=== PATIENT | female | born 1950 | race Caucasian/White ===

== ENCOUNTER → 2021-12-20 | Outpatient (CLI) | payer MEDICARE ==
[~2021-12-20] MED LIST: ALEN70TA80 PO; ASPI-1071 PO; ASPI-612 PO; ATOR10TA70 PO; ATOR20TA66 PO; CARV3.122 PO; CETI-90 PO; CLOP75TA15 PO; CLOP75TA34 PO; DAPA10TA PO; EMPA10TA PO; FAMO40TA58 PO; FERR324T3 PO; FURO40TA4 PO; HYDR25TA4 PO; ISOS20TA8 PO; LEVO25TA7 PO; LISI40TA13 PO; LOP12.5T PO; LOSA25TA96 PO; NITR0.4T51 SL; OMEP40CA21 PO; PANT-47 PO; ROPI1TAB6 PO; ROSU20TA2 PO; SACU1TAB PO; SPIR25TA5 PO; SUCR1TAB PO; SUCR1TAB34 PO; TRAM50TA2 PO
== END | disposition home or self-care (01) ==
LOC: LAB 12:09 → EDSTATUS 12-21 08:30
PROVIDERS: ATTEND Surgery
DX: I25.10 Atherosclerotic heart disease of native coronary artery without angina pectoris (principal); Z79.899 Other long term (current) drug therapy
CPT/HCPCS: 94010

== ENCOUNTER 2022-01-16 05:13 | Inpatient (IN) | payer MEDICARE ==
[2022-01-11 13:57] LABS: BASOPHILS % (AUTO) 0.8 % (0-1); EOSINOPHILS # (AUTO) 0.1 X10'3 (0-0.9); EOSINOPHILS % (AUTO) 2.5 % (0-6); LYMPHOCYTES # (AUTO) 1.4 X10'3 (1.1-4.8); LYMPHOCYTES % (AUTO) 24.1 % (21-51); MEAN CORPUSCULAR HEMOGLOBIN 31.4 PG (27.0-31.0); MEAN CORPUSCULAR HGB CONC 32.9 g/dL (33.0-36.5); MEAN CORPUSCULAR VOLUME 95.5 FL (78-98); MEAN PLATELET VOLUME 8.5 FL (7.4-10.4); MONOCYTES # (AUTO) 0.6 X10'3 (0-0.9); MONOCYTES % (AUTO) 10.5 % (2-12); NEUTROPHILS # (AUTO) 3.5 X10'3 (1.8-7.7); NEUTROPHILS % (AUTO) 62.1 % (42-75); PRE OP HEMATOCRIT 39.3 % (35.0-45.0); PRE OP HEMOGLOBIN 12.9 g/dL (12.0-16.0); PRE OP PLATELET COUNT 233 X10'3 (140-440); RED BLOOD COUNT 4.12 X10'6 (4.20-5.60); RED CELL DISTRIBUTION WIDTH 13.8 % (11.5-14.5)
[2022-01-11 13:58] LABS: CLARITY,URINE CLEAR (Clear); COLOR,URINE YELLOW (Yellow); GLUCOSE, URINE >=1000 mg/dl (Neg); KETONES,URINE NEGATIVE (Neg); LEUKOCYTE ESTERASE ,URINE NEGATIVE (Neg); NITRITES, URINE NEGATIVE (Neg); OCCULT BLOOD,URINE NEGATIVE (Neg); PROTEIN,URINE NEGATIVE (Neg); UROBILINOGEN,URINE 0.2 E.U/dL (0.2-1.0)
[2022-01-11 14:01] LABS: UA COLLECTION TYPE NON-SPECIFIED
[2022-01-11 14:08] LABS: HEMOGLOBIN A1C 5.7 % (4.5-6.2)
[2022-01-11 14:09] LABS: PRE OP PROTIME 10.3 SECONDS (9.0-12.0)
[2022-01-11 14:20] LABS: ALBUMIN 4.3 G/DL (3.4-5.0); ALBUMIN/GLOBULIN RATIO 1.2 (1.1-1.5); ALKALINE PHOSPHATASE 62 IU/L (46-116); BLOOD UREA NITROGEN 21 MG/DL (7-18); BUN/CREATININE RATIO 26.6 (6.6-38.0); CALCIUM 9.4 MG/DL (8.5-10.1); CHLORIDE 104 MMOL/L (99-107); CREATININE 0.79 MG/DL (0.40-0.90); PRE OP ALT 40 U/L (30-65); PRE OP ANION GAP 10 (8-16); PRE OP AST 22 U/L (10-37); PRE OP BILIRUB, TOTAL 0.5 MG/DL (0.0-1.0); PRE OP GLUCOSE 98 MG/DL (70-104); PRE OP POTASSIUM 4.1 MMOL/L (3.4-5.1); PRE OP SODIUM 141 MMOL/L (135-145); TOTAL CARBON DIOXIDE 27.3 MMOL/L (24-32); TOTAL PROTEIN 7.9 G/DL (6.4-8.2); eGFR 72 ML/MIN
[2022-01-11 14:27] LABS: BACTERIA,URINE NONE SEEN /HPF (Neg); MUCUS STRANDS NONE SEEN /LPF (Neg); RBC,URINE NONE SEEN /HPF (0-2); SQUAMOUS EPITHELIAL CELL,UR MODERATE /LPF (FEW); WBC,URINE 0-4 /HPF (0-4)
[~2022-01-16] VITALS: Ht 172.7 cm; Wt 82.4 kg
[2022-01-16] VITALS (19 sets, daily range): BP systolic 95–130; BP diastolic 46–77
[~2022-01-16 05:13] MED LIST changes: -ASPI-1071 PO; -ATOR10TA70 PO; -ATOR20TA66 PO; -CLOP75TA34 PO; -FERR324T3 PO; -HYDR25TA4 PO; -ISOS20TA8 PO; -LISI40TA13 PO; -LOP12.5T PO; -LOSA25TA96 PO; -PANT-47 PO; -SUCR1TAB34 PO; -TRAM50TA2 PO; +ringers solution, lacted 1,000 ML IV SCH
[2022-01-16] MEDS ORDERED: dextrose 50%-water 50ml dispensing syringe IV PRN ×2 (05:30→12:35)
[2022-01-16] MEDS ORDERED: clindamycin-Cleocin 900mg/D5W 50 ML IV ONE (05:30)
[2022-01-16] MEDS ORDERED: insulin glargine (Lantus) pen - multi-dose SQ PRN ×2 (05:30→12:35)
[2022-01-16] MEDS ORDERED: mupirocin 2% nasal ointment 1gm UD NS ONE (05:30)
[2022-01-16] MEDS ORDERED: vancomycin 1,500 MG in NS 300ml IV soln IV ONE (05:30)
[2022-01-16] MEDS ORDERED: metoprolol tartrate 12.5mg (1/2 tablet) PO ONE (05:30)
[2022-01-16] MEDS ORDERED: Insulin Reg/NS 100units/100mL 100 ML IV SCH ×2 (05:30→13:10)
[2022-01-16] MEDS ORDERED: insulin Lispro (HumaLOG) vial - multi-dose SQ PRN (05:30)
[2022-01-16] MEDS ORDERED: famotidine 20mg tablet PO ONE (05:30)
[2022-01-16] MEDS ORDERED: DOCUMENT DATE & TIME OF BETA-BLOCKER PO ONE (05:30)
[2022-01-16] MEDS ORDERED: ceFAZolin 1000mg inj ONE (05:31)
[2022-01-16] MEDS ORDERED: BUPIVAcaine/PF 2.5 mg/ml (0.25%) 30ml vial ONE (05:31)
[2022-01-16 06:23] LABS: ABG HCO3 22.5 mmol/L (22.0-26.0); ABG PO2 (T) 96.4 mmHg (75.0-100.0); ALLEN'S TEST POSITIVE; FCOHb 1.2 % (0.0-3.9); FMetHb 0.3 % (0.0-1.5); FO2Hb 95.5 % (94-97); TOTAL HEMOGLOBIN 12.7 G/dl (12.0-16.0)
--- NOTE | 2022-01-16 06:30 | NUR ---
PT PREPPED FOR SURGERY. SHAVED AND WIPED DOWN BY [facility] [employer]. IV STARTED 16 G IN LEFT AV, AWAITING DR DEVRIES. AT BEDSIDE QUESTIONS ANSWERED. PT INSTRUCTED ON THE USE OF THE INCENTIVE SPIROMETRY AND WAS ABLE TO PERFORM WITHOUT DIFFICULTY
[2022-01-16] MEDS ORDERED: MIDAZolam 1mg/ml 10ml vial ONE (07:14)
[2022-01-16] MEDS ORDERED: fentaNYL /PF 50mcg/ml 5ml ampule ONE ×2 (07:15)
[2022-01-16] MEDS ORDERED: rocuronium 10mg/ml inj IV ONE ×3 (07:18)
[2022-01-16] MEDS ORDERED: propofol inj 20 ML IV ONE (07:18)
[2022-01-16] MEDS ORDERED: LIDOcaine 2% (20mg/ml) 5ml vial ONE (07:18)
[2022-01-16] MEDS ORDERED: NORepinephrine 8 MG in NS 250 ML BAG (32 mcg/ml) IV ONE (07:57)
[2022-01-16] MEDS ORDERED: protamine sulf. 10mg/ml inj. IV ONE (07:57)
[2022-01-16] MEDS ORDERED: sevoflurane 250ml liquid IH ONE (07:57)
[2022-01-16] MEDS ORDERED: heparin 10,000 units/1 ML INJ ONE ×2 (08:00)
[2022-01-16] MEDS ORDERED: heparin 10,000 units/1 ML INJ IR ONE (08:00)
[2022-01-16] MEDS ORDERED: papaverine 30 mg/ml 2ml inj. ONE (08:00)
[2022-01-16] MEDS ORDERED: papaverine 30 mg/ml 2ml inj. IA ONE (08:00)
[2022-01-16] MEDS ORDERED: aminocaproic acid 250 MG/1 ML inj. ONE (08:00)
[2022-01-16] MEDS ORDERED: epiNEPHrine 1 mg/ml inj ONE (08:23)
[2022-01-16 08:41] LABS: ABG BASE EXCESS -3.4 mmol/L (-2.0-2.0); ABG OXYGEN SATURATION 99.5 % (94-97); ABG PCO2 30.9 mmHg (32.0-45.0); ABG PO2 461.4 mmHg (75.0-100.0); CL (ABG) 105 mmol/L (99-107); FCOHb 0.7 % (0.0-3.9); FMetHb 0.2 % (0.0-1.5); FO2Hb 98.6 % (94-97); GLUCOSE (ABG) 102 mg/dl (70-104); IONIZED CA (ABG) 1.17 mmol/L (1.10-1.30); K (ABG) 3.8 mmol/L (3.5-5.1); TOTAL HEMOGLOBIN 10.9 G/dl (12.0-16.0)
[2022-01-16 08:49] LABS: ACT @ 1.70 U 262 SEC (193-297); ACT @ 2.84 U 367 SEC (260-420); BASELINE ACT 133 SEC (101-148); PATIENT WEIGHT 73.0k KG
[2022-01-16 09:47] LABS: ABG BASE EXCESS VENOUS -2.2 mmol/L (-2.0 - 2.0); ABG PCO2 VENOUS 41.3 mmHg (38.0-51.0); ABG PO2 VENOUS 47.1 mmHg (25.0-35.0); CL (ABG) 107 mmol/L (99-107); FCOHb VENOUS 1.3 % (0.0- 3.9); FHHb VENOUS 19.5 %; FMetHb VENOUS 0.3 % (0.0 - 0.5); FO2Hb VENOUS 78.9 %; GLUCOSE (ABG) 131 mg/dl (70-104); IONIZED CA (ABG) 1.16 mmol/L (1.10-1.30); K (ABG) 3.8 mmol/L (3.5-5.1); TOTAL HEMOGLOBIN 10.9 G/dl (12.0-16.0)
[2022-01-16] MEDS: ROPIVAcaine 0.2%/PF PUMP/bolus 545 ML MEDSTERN SCH ×2 (10:25→12:45)
[2022-01-16] MEDS ORDERED: albumin (human) 25% 100ml IV 100 ML in normal saline 500ml IV soln 400 ML IV ONE ×4 (11:00)
[2022-01-16] MEDS ORDERED: albumin (human) 25% 100ml IV 100 ML in normal saline 500ml IV soln 400 ML IV PRN ×5 (11:01→11:05)
[2022-01-16 11:37] LABS: ABG BASE EXCESS VENOUS -4.8 mmol/L (-2.0 - 2.0); ABG HCO3 VENOUS 20.9 mmol/L (21.0-28.0); ABG PCO2 VENOUS 41.4 mmHg (38.0-51.0); ABG PO2 VENOUS 42.8 mmHg (25.0-35.0); CL (ABG) 107 mmol/L (99-107); FCOHb VENOUS 1.5 % (0.0- 3.9); FHHb VENOUS 25.6 %; FMetHb VENOUS 0.3 % (0.0 - 0.5); FO2Hb VENOUS 72.6 %; GLUCOSE (ABG) 128 mg/dl (70-104); IONIZED CA (ABG) 1.14 mmol/L (1.10-1.30); K (ABG) 3.6 mmol/L (3.5-5.1)
[2022-01-16 11:40] LABS: ACTIVATED CLOTTING TIME 127 SEC (101-148)
[2022-01-16] MEDS ORDERED: albumin (human) 25% 100ml IV 100 ML IV ONE (11:59)
[2022-01-16] MEDS ORDERED: albumin (Human) 5% 250ml 0 ML IV ONE (12:00)
[2022-01-16] MEDS ORDERED: mineral oil 133ml enema RC PRN (12:35)
[2022-01-16] MEDS ORDERED: ondansetron/PF 4mg/2ml inj IV PRN (12:35)
[2022-01-16] MEDS ORDERED: potassium Cl 20mEq/100mL bag 100 ML IV PRN (12:35)
[2022-01-16] MEDS ORDERED: Neutra Phos packet PO PRN (12:35)
[2022-01-16] MEDS ORDERED: potassium CL 10mEq/100ml bag 100 ML IV PRN (12:35)
[2022-01-16] MEDS ORDERED: magnesium citrate 296ml oral solution PO PRN (12:35)
[2022-01-16] MEDS ORDERED: potassium Cl 40MEQ/270ML bag 250 ML IV PRN (12:35)
[2022-01-16] MEDS ORDERED: sodium phosphate inj. 15 MMOL in dextrose 5%-water 250 ML IV PRN (12:35)
[2022-01-16] MEDS ORDERED: magnesium 2GM in 50ml NS 50 ML IV PRN (12:35)
[2022-01-16] MEDS ORDERED: magnesium hydroxide 30ml (MOM) UD suspension PO PRN (12:35)
[2022-01-16] MEDS ORDERED: normal saline 250ml IV soln 250 ML IV PRN (12:35)
[2022-01-16] MEDS ORDERED: morphine 4 MG/ML inj SYRINge IV PRN (12:35)
[2022-01-16] MEDS ORDERED: magnesium 4gm in 100ml NS 100 ML IV PRN (12:35)
[2022-01-16] MEDS ORDERED: metoclopramide 5 mg/ml inj IV PRN (12:35)
[2022-01-16] MEDS: sodium chloride 0.45% 1,000 ML IV SCH (12:35)
[2022-01-16] MEDS ORDERED: potassium Cl 20 mEq SR tablet PO PRN (12:35)
[2022-01-16] MEDS ORDERED: bisacodyl 10mg suppository rectal RC PRN (12:35)
[2022-01-16] MEDS ORDERED: potassium Cl 40MEQ/1/2NS 520ml 520 ML IV PRN (12:35)
[2022-01-16] MEDS ORDERED: sodium phosphate inj. 30 MMOL in dextrose 5%-water 250 ML IV PRN (12:35)
--- NOTE | 2022-01-16 12:45 | NUR ---
pt from cvor to room 2011,cxr, abg, lab draws performed. mds at bedside.
[2022-01-16] MEDS ORDERED: niCARDipine-NS 40mg/200ml IVPB 200 ML IV PRN (12:54)
[2022-01-16] MEDS ORDERED: NORepinephrine 8mg/ 250ml NS 250 ML IV PRN (12:55)
[2022-01-16 12:57] LABS: ABG BASE EXCESS -6.6 mmol/L (-2.0-2.0); ABG HCO3 18.7 mmol/L (22.0-26.0); ABG OXYGEN SATURATION 98.8 % (94-97); ABG PCO2 (T) 32.5 mmHg (32.0-45.0); ABG PO2 (T) 250.6 mmHg (75.0-100.0); ALLEN'S TEST Modified; FCOHb 0.3 % (0.0-3.9); FMetHb 0.3 % (0.0-1.5); FO2Hb 98.2 % (94-97); PATIENT TEMPERATURE 34.2; PEEP 5 cm H2O; RESPIRATORY RATE 12 b/min; TIDAL VOLUME 550 mL; TOTAL HEMOGLOBIN 9.9 G/dl (12.0-16.0)
[2022-01-16] MEDS ORDERED: DOPamine 400mg/D5W 250ml 250 ML IV PRN (12:57)
[2022-01-16 12:58] LABS: BASOPHILS % (AUTO) 0.1 % (0-1); EOSINOPHILS # (AUTO) 0.1 X10'3 (0-0.9); HEMATOCRIT 28.3 % (35.0-45.0); HEMOGLOBIN 9.3 g/dl (12.0-16.0); LYMPHOCYTES # (AUTO) 1.3 X10'3 (1.1-4.8); MEAN CORPUSCULAR HEMOGLOBIN 31.3 PG (27.0-31.0); MEAN CORPUSCULAR HGB CONC 32.9 g/dL (33.0-36.5); MEAN CORPUSCULAR VOLUME 95.1 FL (78-98); MONOCYTES # (AUTO) 0.8 X10'3 (0-0.9); MONOCYTES % (AUTO) 6.2 % (2-12); NEUTROPHILS # (AUTO) 10.5 X10'3 (1.8-7.7); NEUTROPHILS % (AUTO) 82.7 % (42-75); PLATELET COUNT 151 X10'3 (140-440); RED BLOOD COUNT 2.98 X10'6 (4.20-5.60); RED CELL DISTRIBUTION WIDTH 13.5 % (11.5-14.5); WHITE BLOOD COUNT 12.7 X10'3 (4.5-11.0)
[2022-01-16] MEDS ORDERED: sodium bicarbonate (8.4%) 1 mEq/ml syringe ONE (12:58)
[2022-01-16] MEDS: sucralfate 1 gm tablet PO SCH ×3 (13:00→21:00)
[2022-01-16] MEDS ORDERED: morphine 4 MG/ML inj SYRINge ONE (13:00)
[2022-01-16] MEDS ORDERED: nitroGLYCERIN-Tridil 50MG/D5W 250 ML IV PRN (13:05)
[2022-01-16 13:13] LABS: ALANINE AMINOTRANSFERASE 24 U/L (12-78); ALBUMIN 3.9 G/DL (3.4-5.0); ALBUMIN/GLOBULIN RATIO 2.1 (1.1-1.5); ALKALINE PHOSPHATASE 38 IU/L (46-116); ANION GAP 12 (8-16); ASPARTATE AMINO TRANSFERASE 15 U/L (10-37); BILIRUBIN,TOTAL 0.6 MG/DL (0.1-1.0); BLOOD UREA NITROGEN 15 MG/DL (7-18); CALCIUM 7.5 MG/DL (8.5-10.1); CHLORIDE 109 MMOL/L (99-107); GLUCOSE 113 MG/DL (70-104); MAGNESIUM 1.7 MG/DL (1.5-2.4); PHOSPHORUS 3.2 MG/DL (2.3-4.5); POTASSIUM 3.8 MMOL/L (3.5-5.1); SODIUM 141 MMOL/L (135-145); TOTAL CARBON DIOXIDE 19.9 MMOL/L (24-32); TOTAL PROTEIN 5.8 G/DL (6.4-8.2); eGFR > 90 ML/MIN
[2022-01-16 13:16] LABS: APTT 34 SECONDS (22-32)
[2022-01-16] MEDS: gabapentin 300mg capsule PO SCH ×2 (14:22→20:43)
[2022-01-16] MEDS: morphine 2 MG/ML inj. syringe IV PRN ×3 (14:45→19:41)
--- NOTE | 2022-01-16 16:24 | NUR ---
Dr. reynaga at bedside updated on pt condition
[2022-01-16] MEDS: ceFAZolin/D5W- 1GM premix 50 ML IV SCH (16:29)
[2022-01-16 17:51] LABS: BASOPHILS % (AUTO) 0.1 % (0-1); EOSINOPHILS % (AUTO) 0.1 % (0-6); HEMATOCRIT 27.7 % (35.0-45.0); HEMOGLOBIN 9.1 g/dl (12.0-16.0); LYMPHOCYTES # (AUTO) 0.6 X10'3 (1.1-4.8); LYMPHOCYTES % (AUTO) 4.4 % (21-51); MEAN CORPUSCULAR HEMOGLOBIN 31.3 PG (27.0-31.0); MEAN CORPUSCULAR HGB CONC 32.8 g/dL (33.0-36.5); MEAN CORPUSCULAR VOLUME 95.5 FL (78-98); MEAN PLATELET VOLUME 8.3 FL (7.4-10.4); MONOCYTES # (AUTO) 0.7 X10'3 (0-0.9); MONOCYTES % (AUTO) 5.2 % (2-12); NEUTROPHILS # (AUTO) 12.1 X10'3 (1.8-7.7); NEUTROPHILS % (AUTO) 90.2 % (42-75); PLATELET COUNT 172 X10'3 (140-440); RED CELL DISTRIBUTION WIDTH 13.7 % (11.5-14.5); WHITE BLOOD COUNT 13.4 X10'3 (4.5-11.0)
[2022-01-16 18:14] LABS: ALANINE AMINOTRANSFERASE 24 U/L (12-78); ALBUMIN 3.7 G/DL (3.4-5.0); ALBUMIN/GLOBULIN RATIO 1.9 (1.1-1.5); ALKALINE PHOSPHATASE 38 IU/L (46-116); ANION GAP 10 (8-16); ASPARTATE AMINO TRANSFERASE 18 U/L (10-37); BILIRUBIN,TOTAL 0.8 MG/DL (0.1-1.0); BLOOD UREA NITROGEN 17 MG/DL (7-18); BUN/CREATININE RATIO 24.6 (6.6-38.0); CALCIUM 7.6 MG/DL (8.5-10.1); CHLORIDE 109 MMOL/L (99-107); CREATININE 0.69 MG/DL (0.40-0.90); GLUCOSE 99 MG/DL (70-104); MAGNESIUM 2.8 MG/DL (1.5-2.4); PHOSPHORUS 3.9 MG/DL (2.3-4.5); POTASSIUM 4.2 MMOL/L (3.5-5.1); SODIUM 140 MMOL/L (135-145); TOTAL CARBON DIOXIDE 21.3 MMOL/L (24-32); TOTAL PROTEIN 5.7 G/DL (6.4-8.2); eGFR 84 ML/MIN
--- NOTE | 2022-01-16 18:30 | NUR ---
I have received report on a 71 year old with a history of Lung nodules, AICD placement , IBS, CHF, SC, HTN and COPD. Pt underwent a CABG x2 today with a Parks to LAD and Saph to OM. Pt is in bed , alert and oriented. Pt has [address] communicating into 2 atriums. Levophed drip in place to keep SBP 100-130. 16 F mckeon cath in place draining to gravity. glucose monitoring to keep glucose 110-150. Insulin drip currently off. no crepitus noted, no tracheal deviation noted. hemodynamic monitoring and assessment complete
[2022-01-16] MEDS: sennosides/docusate sodium tablet PO SCH (20:00)
[2022-01-16] MEDS: mupirocin 2% nasal ointment 1gm UD NS SCH (20:43)
[2022-01-16] MEDS: ROPINIRole 1mg tablet PO SCH (20:43)
[2022-01-16] MEDS: vancomycin/NS 1 GM ADD-VANTAGE 250 ML IV SCH (20:43)
[2022-01-16] MEDS: atorvastatin 10mg tablet PO SCH (20:43)
[2022-01-16] MEDS: ALBUMIN HUMAN 5% 500ML 500 ML IV PRN (21:08)
[2022-01-16] MEDS: acetaminophen 325mg tablet PO PRN (21:08)
[2022-01-17] VITALS (24 sets, daily range): BP systolic 77–140; BP diastolic 38–84
[2022-01-17 00:13] LABS: BASOPHILS % (AUTO) 0.3 % (0-1); EOSINOPHILS % (AUTO) 0 % (0-6); HEMATOCRIT 26.2 % (35.0-45.0); HEMOGLOBIN 8.8 g/dl (12.0-16.0); LYMPHOCYTES # (AUTO) 0.7 X10'3 (1.1-4.8); LYMPHOCYTES % (AUTO) 5.4 % (21-51); MEAN CORPUSCULAR HEMOGLOBIN 31.7 PG (27.0-31.0); MEAN CORPUSCULAR HGB CONC 33.4 g/dL (33.0-36.5); MEAN CORPUSCULAR VOLUME 94.8 FL (78-98); MEAN PLATELET VOLUME 8.8 FL (7.4-10.4); MONOCYTES # (AUTO) 0.8 X10'3 (0-0.9); MONOCYTES % (AUTO) 6.5 % (2-12); NEUTROPHILS # (AUTO) 11.3 X10'3 (1.8-7.7); NEUTROPHILS % (AUTO) 87.8 % (42-75); PLATELET COUNT 155 X10'3 (140-440); RED BLOOD COUNT 2.77 X10'6 (4.20-5.60); RED CELL DISTRIBUTION WIDTH 13.7 % (11.5-14.5); WHITE BLOOD COUNT 12.8 X10'3 (4.5-11.0)
[2022-01-17 00:23] LABS: ANION GAP 17 (8-16); BLOOD UREA NITROGEN 17 MG/DL (7-18); BUN/CREATININE RATIO 22.4 (6.6-38.0); CALCIUM 7.4 MG/DL (8.5-10.1); CHLORIDE 107 MMOL/L (99-107); CREATININE 0.76 MG/DL (0.40-0.90); GLUCOSE 95 MG/DL (70-104); MAGNESIUM 3.2 MG/DL (1.5-2.4); PHOSPHORUS 3.6 MG/DL (2.3-4.5); POTASSIUM 4.1 MMOL/L (3.5-5.1); SODIUM 140 MMOL/L (135-145); TOTAL CARBON DIOXIDE 15.7 MMOL/L (24-32); eGFR 75 ML/MIN
[2022-01-17] MEDS: ceFAZolin/D5W- 1GM premix 50 ML IV SCH ×3 (00:52→16:28)
[2022-01-17] MEDS: acetaminophen 325mg tablet PO PRN ×4 (01:33→18:02)
[2022-01-17] MEDS: morphine 2 MG/ML inj. syringe IV PRN (03:24)
[2022-01-17 04:36] LABS: BASOPHILS # (AUTO) 0.1 X10'3 (0-0.2); BASOPHILS % (AUTO) 0.6 % (0-1); EOSINOPHILS % (AUTO) 0.1 % (0-6); HEMATOCRIT 28.8 % (35.0-45.0); HEMOGLOBIN 9.2 g/dl (12.0-16.0); LYMPHOCYTES # (AUTO) 0.9 X10'3 (1.1-4.8); LYMPHOCYTES % (AUTO) 7.1 % (21-51); MEAN CORPUSCULAR HEMOGLOBIN 30.9 PG (27.0-31.0); MEAN CORPUSCULAR HGB CONC 31.9 g/dL (33.0-36.5); MEAN CORPUSCULAR VOLUME 96.8 FL (78-98); MONOCYTES # (AUTO) 0.9 X10'3 (0-0.9); NEUTROPHILS # (AUTO) 10.4 X10'3 (1.8-7.7); NEUTROPHILS % (AUTO) 85.2 % (42-75); PLATELET COUNT 170 X10'3 (140-440); RED BLOOD COUNT 2.98 X10'6 (4.20-5.60); RED CELL DISTRIBUTION WIDTH 13.9 % (11.5-14.5); WHITE BLOOD COUNT 12.3 X10'3 (4.5-11.0)
[2022-01-17] MEDS: ALBUMIN HUMAN 5% 500ML 500 ML IV PRN ×3 (04:40→10:51)
[2022-01-17 04:41] LABS: APTT 29 SECONDS (22-32)
[2022-01-17 04:44] LABS: ALANINE AMINOTRANSFERASE 22 U/L (12-78); ALBUMIN 3.8 G/DL (3.4-5.0); ALBUMIN/GLOBULIN RATIO 1.8 (1.1-1.5); ALKALINE PHOSPHATASE 39 IU/L (46-116); ANION GAP 18 (8-16); ASPARTATE AMINO TRANSFERASE 26 U/L (10-37); BILIRUBIN,TOTAL 0.6 MG/DL (0.1-1.0); BLOOD UREA NITROGEN 17 MG/DL (7-18); CALCIUM 7.4 MG/DL (8.5-10.1); CHLORIDE 108 MMOL/L (99-107); CREATININE 0.85 MG/DL (0.40-0.90); GLUCOSE 92 MG/DL (70-104); MAGNESIUM 2.9 MG/DL (1.5-2.4); PHOSPHORUS 3.6 MG/DL (2.3-4.5); POTASSIUM 4.7 MMOL/L (3.5-5.1); SODIUM 141 MMOL/L (135-145); TOTAL CARBON DIOXIDE 15.1 MMOL/L (24-32); TOTAL PROTEIN 5.9 G/DL (6.4-8.2); eGFR 66 ML/MIN
--- NOTE | 2022-01-17 06:10 | NUR ---
report given to rec rn plan of care reviewed
--- NOTE | 2022-01-17 06:47 | NUR ---
Patient in room CICU 2011. I have received report from HUSEYIN Castro and had the opportunity to ask questions and assume patient care.
--- NOTE | 2022-01-17 07:30 | NUR ---
Patient to chair for breakfast. Patient tolerated activity well.
[2022-01-17] MEDS: aspirin 81mg tab.chew PO SCH (07:47)
[2022-01-17] MEDS: levoTHYROXINE 25mcg tablet PO SCH (07:47)
[2022-01-17] MEDS: sennosides/docusate sodium tablet PO SCH ×2 (07:47→21:13)
[2022-01-17] MEDS: mupirocin 2% nasal ointment 1gm UD NS SCH ×2 (07:47→20:00)
[2022-01-17] MEDS: sucralfate 1 gm tablet PO SCH ×4 (07:47→21:13)
[2022-01-17] MEDS: gabapentin 300mg capsule PO SCH ×3 (07:48→21:14)
[2022-01-17] MEDS ORDERED: cetirizine 10mg tablet PO SCH (08:00)
[2022-01-17] MEDS ORDERED: metoprolol tartrate 12.5mg (1/2 tablet) PO SCH (08:00)
--- NOTE | 2022-01-17 09:00 | NUR ---
Art line discontinued without issues at this time time.
[2022-01-17] MEDS: vancomycin/NS 1 GM ADD-VANTAGE 250 ML IV SCH ×2 (09:02→21:13)
--- NOTE | 2022-01-17 09:41 | NUR ---
Dr. Dean's rounded, ordered for 1L of 5% Albumin to be given to the patient. He D/C'd one set of chest tubes and left the other set until tomorrow. He ordered for a repeat echocardiogram to be done tomorrow 01/18/22. He also stated to go ahead and leave the mckeon catheter in for today as well.
--- NOTE | 2022-01-17 09:57 | NUR ---
CABG Consult: Pt post-op day 1 s/p CABGx2 per EMR. Pt would benefit from written/verbal high protein/HH diet eds once appropriate post-op prior discharge. Addendum: 01/17/22 at [address] Amended: Links added.
--- NOTE | 2022-01-17 10:00 | NUR ---
PA and introducer removed per MD order.
--- NOTE | 2022-01-17 10:24 | NUR ---
Patient back in bed from chair. Patient tolerated activity well.
[2022-01-17] MEDS: clopidogrel 75mg tablet PO SCH (10:36)
--- NOTE | 2022-01-17 13:06 | NUR ---
Dr. Dean stated to hold the next two doses of gabapentin to see if there is an improvement of blood pressure.
--- NOTE | 2022-01-17 13:33 | NUR ---
Patient to chair, tolerated activity well.
[2022-01-17] MEDS ORDERED: ketorolac tromethamine 15mg/ml inj. IV SCH (14:00)
--- NOTE | 2022-01-17 15:00 | NUR ---
Patient back to bed at this time for a rest.
--- NOTE | 2022-01-17 17:45 | NUR ---
Patient up for a walk with RN and PCT. Patient tolerated well. Patient urine output suddenly increased to 400ml and chest tubes drained about 70ml. Patient up to chair after walk and ready for dinner.
--- NOTE | 2022-01-17 18:16 | NUR ---
Problems reprioritized. Patient report given, questions answered & plan of care reviewed with HUSEYIN Castro.
--- NOTE | 2022-01-17 18:35 | NUR ---
I have received report and assumed care of pt, Pt sitting in a chair eating dinner visiting with her . Pt denies distress at this time. Pt able to speak in complete sentences without distress
--- NOTE | 2022-01-17 19:04 | NUR ---
Pt transferred back to bed with assistance of 2 without difficulties, titrating Levophed down to keep SBP 100-130
[2022-01-17 20:38] LABS: BASOPHILS % (AUTO) 0.3 % (0-1); EOSINOPHILS % (AUTO) 0.2 % (0-6); HEMATOCRIT 25.5 % (35.0-45.0); HEMOGLOBIN 8.6 g/dl (12.0-16.0); LYMPHOCYTES # (AUTO) 0.8 X10'3 (1.1-4.8); LYMPHOCYTES % (AUTO) 8.1 % (21-51); MEAN CORPUSCULAR HEMOGLOBIN 32.4 PG (27.0-31.0); MEAN CORPUSCULAR HGB CONC 33.5 g/dL (33.0-36.5); MEAN CORPUSCULAR VOLUME 96.7 FL (78-98); MONOCYTES # (AUTO) 0.9 X10'3 (0-0.9); MONOCYTES % (AUTO) 9.7 % (2-12); NEUTROPHILS # (AUTO) 7.6 X10'3 (1.8-7.7); NEUTROPHILS % (AUTO) 81.7 % (42-75); PLATELET COUNT 149 X10'3 (140-440); RED BLOOD COUNT 2.64 X10'6 (4.20-5.60); WHITE BLOOD COUNT 9.3 X10'3 (4.5-11.0)
[2022-01-17 20:51] LABS: ALANINE AMINOTRANSFERASE 46 U/L (12-78); ALBUMIN 4.1 G/DL (3.4-5.0); ALBUMIN/GLOBULIN RATIO 2.1 (1.1-1.5); ALKALINE PHOSPHATASE 54 IU/L (46-116); ANION GAP 9 (8-16); ASPARTATE AMINO TRANSFERASE 46 U/L (10-37); BILIRUBIN,TOTAL 0.6 MG/DL (0.1-1.0); BLOOD UREA NITROGEN 24 MG/DL (7-18); CALCIUM 7.4 MG/DL (8.5-10.1); CHLORIDE 105 MMOL/L (99-107); GLUCOSE 179 MG/DL (70-104); MAGNESIUM 2.8 MG/DL (1.5-2.4); POTASSIUM 4.6 MMOL/L (3.5-5.1); SODIUM 134 MMOL/L (135-145); TOTAL PROTEIN 6.1 G/DL (6.4-8.2); eGFR 55 ML/MIN
[2022-01-17] MEDS: atorvastatin 10mg tablet PO SCH (21:13)
[2022-01-17] MEDS: ROPINIRole 1mg tablet PO SCH (21:13)
[2022-01-17] MEDS: enoxaparin 40mg/0.4ml syringe SUBCUT SCH (21:14)
--- NOTE | 2022-01-17 21:50 | NUR ---
hs cares complete pt tolerated well
[2022-01-18] VITALS (24 sets, daily range): BP systolic 92–126; BP diastolic 53–76
[2022-01-18] MEDS: ceFAZolin/D5W- 1GM premix 50 ML IV SCH (00:48)
[2022-01-18] MEDS: acetaminophen 325mg tablet PO PRN ×4 (01:02→19:15)
[2022-01-18 02:37] LABS: BASOPHILS # (AUTO) 0.1 X10'3 (0-0.2); BASOPHILS % (AUTO) 0.6 % (0-1); EOSINOPHILS % (AUTO) 0.4 % (0-6); HEMATOCRIT 26.5 % (35.0-45.0); HEMOGLOBIN 8.9 g/dl (12.0-16.0); LYMPHOCYTES # (AUTO) 1.3 X10'3 (1.1-4.8); LYMPHOCYTES % (AUTO) 13.7 % (21-51); MEAN CORPUSCULAR HEMOGLOBIN 32.3 PG (27.0-31.0); MEAN CORPUSCULAR HGB CONC 33.5 g/dL (33.0-36.5); MEAN CORPUSCULAR VOLUME 96.4 FL (78-98); MEAN PLATELET VOLUME 9.3 FL (7.4-10.4); MONOCYTES % (AUTO) 10.8 % (2-12); NEUTROPHILS # (AUTO) 6.8 X10'3 (1.8-7.7); NEUTROPHILS % (AUTO) 74.5 % (42-75); PLATELET COUNT 160 X10'3 (140-440); RED BLOOD COUNT 2.75 X10'6 (4.20-5.60); RED CELL DISTRIBUTION WIDTH 14.2 % (11.5-14.5); WHITE BLOOD COUNT 9.2 X10'3 (4.5-11.0)
[2022-01-18 02:58] LABS: ANION GAP 8 (8-16); BLOOD UREA NITROGEN 19 MG/DL (7-18); BUN/CREATININE RATIO 23.5 (6.6-38.0); CALCIUM 7.6 MG/DL (8.5-10.1); CHLORIDE 107 MMOL/L (99-107); CREATININE 0.81 MG/DL (0.40-0.90); GLUCOSE 116 MG/DL (70-104); MAGNESIUM 2.9 MG/DL (1.5-2.4); POTASSIUM 4.5 MMOL/L (3.5-5.1); SODIUM 136 MMOL/L (135-145); TOTAL CARBON DIOXIDE 20.7 MMOL/L (24-32); eGFR 70 ML/MIN
[2022-01-18 03:02] LABS: PHOSPHORUS 1.2 MG/DL (2.3-4.5)
[2022-01-18] MEDS: gabapentin 300mg capsule PO SCH (07:20)
[2022-01-18] MEDS: sennosides/docusate sodium tablet PO SCH ×2 (07:20→20:25)
[2022-01-18] MEDS: levoTHYROXINE 25mcg tablet PO SCH (07:20)
[2022-01-18] MEDS: mupirocin 2% nasal ointment 1gm UD NS SCH (07:20)
[2022-01-18] MEDS: sucralfate 1 gm tablet PO SCH ×4 (07:20→20:26)
[2022-01-18] MEDS: clopidogrel 75mg tablet PO SCH (07:21)
[2022-01-18] MEDS: pantoprazole 40mg Tablet.DR PO SCH (07:21)
[2022-01-18] MEDS: aspirin 81mg tab.chew PO SCH (08:37)
[2022-01-18] MEDS: ROPIVAcaine 0.2%/PF PUMP/bolus 545 ML MEDSTERN SCH ×3 (10:25→19:18)
--- NOTE | 2022-01-18 11:54 | NUR ---
F/u 01/18: Pt seen by RD for written/verbal high protein/HH diet eds w/ RD contact information provided. Pt is agreeable to strawberry-banana Xiang SHANNON; MASSIMO notified. Pt reports dislikes pancakes/hot cereals; dietary notified. RD encouraged pt to contact dietitian's office if further questions/concerns. Addendum: 01/18/22 at [address] Amended: Links added.
[2022-01-18] MEDS: JUVEN Smoothie Arginine/Glut./Ca2+Bmb (Juven 19.3pkt) 240ml cup PO SCH ×2 (12:30→17:30)
[2022-01-18] MEDS: sodium chloride 0.45% 1,000 ML IV SCH (12:35)
[2022-01-18] MEDS ORDERED: PERFLUTREN PROTEIN-A MICROSPHR (Optison) 0.22 MG/ML 3ML VIAL IV ONE (14:50)
--- NOTE | 2022-01-18 18:12 | NUR ---
Patient in room CICU 2011. I have received report from HUSEYIN Thakkar and had the opportunity to ask questions and assume patient care.
--- NOTE | 2022-01-18 19:30 | NUR ---
Phone call to Dr. Quintanilla re: Q ball is empty. Per MD there should be a second one to administer. RN will call pharmacy.
[2022-01-18] MEDS: morphine 2 MG/ML inj. syringe IV PRN (19:42)
--- NOTE | 2022-01-18 20:01 | NUR ---
Patient walked 150 feet. Tolerated well. Painful - c/o pain to anterior chest and left lateral flank area 11/02. Patient medicated for pain per MD orders.
[2022-01-18] MEDS: ROPINIRole 1mg tablet PO SCH (20:25)
[2022-01-18] MEDS: atorvastatin 10mg tablet PO SCH (20:26)
[2022-01-18] MEDS: enoxaparin 40mg/0.4ml syringe SUBCUT SCH (20:27)
[2022-01-19] VITALS (17 sets, daily range): BP systolic 96–152; BP diastolic 55–90
--- NOTE | 2022-01-19 01:28 | NUR ---
Problems reprioritized. Patient report given, questions answered & plan of care reviewed with HUSEYIN Hawk.
--- NOTE | 2022-01-19 01:38 | NUR ---
I have received report and assumed care of pt. Pt resting in bed rise and fall of chest cavity equile and symmetrical, chest tubes x 2 communicating into one atrium, no crepitus noted, no tracheal deviation noted.
[2022-01-19 02:54] LABS: BASOPHILS % (AUTO) 0.3 % (0-1); EOSINOPHILS # (AUTO) 0.1 X10'3 (0-0.9); EOSINOPHILS % (AUTO) 1.5 % (0-6); HEMATOCRIT 24.7 % (35.0-45.0); HEMOGLOBIN 8.3 g/dl (12.0-16.0); LYMPHOCYTES # (AUTO) 0.9 X10'3 (1.1-4.8); LYMPHOCYTES % (AUTO) 12.4 % (21-51); MEAN CORPUSCULAR HEMOGLOBIN 32.1 PG (27.0-31.0); MEAN CORPUSCULAR HGB CONC 33.5 g/dL (33.0-36.5); MEAN CORPUSCULAR VOLUME 95.8 FL (78-98); MEAN PLATELET VOLUME 8.7 FL (7.4-10.4); MONOCYTES # (AUTO) 0.7 X10'3 (0-0.9); MONOCYTES % (AUTO) 10.3 % (2-12); NEUTROPHILS # (AUTO) 5.5 X10'3 (1.8-7.7); NEUTROPHILS % (AUTO) 75.5 % (42-75); PLATELET COUNT 161 X10'3 (140-440); RED BLOOD COUNT 2.58 X10'6 (4.20-5.60); RED CELL DISTRIBUTION WIDTH 13.5 % (11.5-14.5); WHITE BLOOD COUNT 7.2 X10'3 (4.5-11.0)
[2022-01-19 03:02] LABS: ALBUMIN 3.4 G/DL (3.4-5.0); ANION GAP 5 (8-16); BLOOD UREA NITROGEN 14 MG/DL (7-18); BUN/CREATININE RATIO 24.1 (6.6-38.0); CALCIUM 8.1 MG/DL (8.5-10.1); CHLORIDE 107 MMOL/L (99-107); CREATININE 0.58 MG/DL (0.40-0.90); GLUCOSE 103 MG/DL (70-104); MAGNESIUM 2.5 MG/DL (1.5-2.4); PHOSPHORUS 1.6 MG/DL (2.3-4.5); POTASSIUM 3.7 MMOL/L (3.5-5.1); SODIUM 138 MMOL/L (135-145); TOTAL CARBON DIOXIDE 25.7 MMOL/L (24-32); eGFR > 90 ML/MIN
[2022-01-19] MEDS: acetaminophen 325mg tablet PO PRN (05:41)
--- NOTE | 2022-01-19 06:03 | NUR ---
report given to rec rn plan of care reviewed
[2022-01-19] MEDS ORDERED: FERR324T3 PO (07:59)
[2022-01-19] MEDS ORDERED: potassium Cl 20mEq/100mL bag 100 ML IV PRN (08:00)
[2022-01-19] MEDS ORDERED: folic acid/vitamin B complex w/vitamin C 0.8mg tablet PO SCH (08:00)
[2022-01-19] MEDS ORDERED: magnesium 2GM in 50ml NS 50 ML IV PRN (08:00)
[2022-01-19] MEDS ORDERED: potassium Cl 40MEQ/1/2NS 520ml 520 ML IV PRN (08:00)
[2022-01-19] MEDS ORDERED: magnesium 4gm in 100ml NS 100 ML IV PRN (08:00)
[2022-01-19] MEDS ORDERED: potassium Cl 20 mEq SR tablet PO PRN (08:00)
[2022-01-19] MEDS ORDERED: potassium CL 10mEq/100ml bag 100 ML IV PRN (08:00)
[2022-01-19] MEDS: magnesium Cl slow-release 64mg tablet PO SCH ×2 (08:00→20:00)
[2022-01-19] MEDS ORDERED: potassium Cl 40MEQ/270ML bag 250 ML IV PRN (08:00)
[2022-01-19] MEDS ORDERED: TRAM50TA2 PO (08:06)
[2022-01-19] MEDS: ferrous gluconate 324mg tablet PO SCH ×3 (08:15→17:50)
[2022-01-19] MEDS: potassium Cl 20 mEq SR tablet PO PRN ×3 (08:19→12:49)
[2022-01-19] MEDS: sennosides/docusate sodium tablet PO SCH ×2 (08:20→20:09)
[2022-01-19] MEDS: aspirin 81mg tab.chew PO SCH (08:20)
[2022-01-19] MEDS: pantoprazole 40mg Tablet.DR PO SCH (08:21)
[2022-01-19] MEDS: carVEDilol 3.125mg tablet PO SCH ×2 (08:21→20:09)
[2022-01-19] MEDS: sucralfate 1 gm tablet PO SCH ×4 (08:21→20:09)
[2022-01-19] MEDS: furosemide 20MG tablet PO SCH (08:21)
[2022-01-19] MEDS: levoTHYROXINE 25mcg tablet PO SCH (08:22)
[2022-01-19] MEDS: clopidogrel 75mg tablet PO SCH (08:22)
[2022-01-19] MEDS: traMADol 50MG tablet PO PRN ×3 (09:26→20:09)
--- NOTE | 2022-01-19 11:13 | NUR ---
CABG Consult: Addressed; see prior RD note. Addendum: 01/19/22 at [address] Amended: Links added.
[2022-01-19] MEDS: JUVEN Smoothie Arginine/Glut./Ca2+Bmb (Juven 19.3pkt) 240ml cup PO SCH ×2 (12:30→17:50)
--- NOTE | 2022-01-19 15:26 | NUR ---
Patient transferred to 3009 with all belongings including patient's CPAP. Report given to Jenifer FONTANEZ with all questions answered.
--- NOTE | 2022-01-19 18:29 | NUR ---
Patient in room U 3009. I have received report from Jenifer FONTANEZ and had the opportunity to ask questions and assume patient care. Pt is sitting high fowlers in bed eating dinner. Pt has at bed side. Pt declines any c/o pain at this time. Pt on RA. No s/s of distress. BLL, call light wihtin reach, frequently used items in reach, frequent rouning. Will continue to monitor.
[2022-01-19] MEDS: ROPINIRole 1mg tablet PO SCH (20:09)
[2022-01-19] MEDS: atorvastatin 10mg tablet PO SCH (20:09)
[2022-01-19] MEDS: enoxaparin 40mg/0.4ml syringe SUBCUT SCH (20:10)
[2022-01-19] MEDS: morphine 2 MG/ML inj. syringe IV PRN (22:24)
[2022-01-20] MEDS: traMADol 50MG tablet PO PRN (01:56)
--- NOTE | 2022-01-20 06:23 | NUR ---
Problems reprioritized. Patient report given, questions answered & plan of care reviewed with Ariana FONTANEZ.
[2022-01-20 08:16] LABS: BASOPHILS % (AUTO) 0.5 % (0-1); EOSINOPHILS # (AUTO) 0.2 X10'3 (0-0.9); EOSINOPHILS % (AUTO) 3.3 % (0-6); HEMOGLOBIN 9.3 g/dl (12.0-16.0); LYMPHOCYTES % (AUTO) 17.6 % (21-51); MEAN CORPUSCULAR HEMOGLOBIN 32.4 PG (27.0-31.0); MEAN CORPUSCULAR HGB CONC 34.2 g/dL (33.0-36.5); MEAN CORPUSCULAR VOLUME 94.5 FL (78-98); MEAN PLATELET VOLUME 8.1 FL (7.4-10.4); MONOCYTES # (AUTO) 0.5 X10'3 (0-0.9); NEUTROPHILS # (AUTO) 3.8 X10'3 (1.8-7.7); NEUTROPHILS % (AUTO) 68.6 % (42-75); PLATELET COUNT 226 X10'3 (140-440); RED BLOOD COUNT 2.86 X10'6 (4.20-5.60); RED CELL DISTRIBUTION WIDTH 13.7 % (11.5-14.5); WHITE BLOOD COUNT 5.5 X10'3 (4.5-11.0)
[2022-01-20 08:20] LABS: ALBUMIN 3.5 G/DL (3.4-5.0); ANION GAP 8 (8-16); BLOOD UREA NITROGEN 12 MG/DL (7-18); BUN/CREATININE RATIO 20.3 (6.6-38.0); CALCIUM 8.9 MG/DL (8.5-10.1); CHLORIDE 102 MMOL/L (99-107); CREATININE 0.59 MG/DL (0.40-0.90); GLUCOSE 105 MG/DL (70-104); POTASSIUM 3.9 MMOL/L (3.5-5.1); SODIUM 137 MMOL/L (135-145); eGFR > 90 ML/MIN
[2022-01-20] MEDS: morphine 2 MG/ML inj. syringe IV PRN ×2 (09:35→13:54)
[2022-01-20] MEDS: sennosides/docusate sodium tablet PO SCH (09:36)
[2022-01-20] MEDS: clopidogrel 75mg tablet PO SCH (09:36)
[2022-01-20] MEDS: ferrous gluconate 324mg tablet PO SCH ×2 (09:36→13:53)
[2022-01-20] MEDS: aspirin 81mg tab.chew PO SCH (09:36)
[2022-01-20] MEDS: sucralfate 1 gm tablet PO SCH ×2 (09:36→13:55)
[2022-01-20] MEDS: carVEDilol 3.125mg tablet PO SCH (09:36)
[2022-01-20] MEDS: magnesium Cl slow-release 64mg tablet PO SCH (09:36)
[2022-01-20] MEDS: levoTHYROXINE 25mcg tablet PO SCH (09:37)
[2022-01-20] MEDS: furosemide 20MG tablet PO SCH (09:37)
[2022-01-20] MEDS: pantoprazole 40mg Tablet.DR PO SCH (09:37)
[2022-01-20] MEDS: ROPIVAcaine 0.2%/PF PUMP/bolus 545 ML MEDSTERN SCH ×2 (10:25)
--- NOTE | 2022-01-20 15:00 | NUR ---
Pt aox4, vss, minimal pain to mid sternal incision. OnQ ball dc'd by MD Quintanilla and MASSIMO Navarro. Education and sternal precautions reviewed with patient and . IV dc'd, pt wheeled to car. Medications sent to preferred pharmacy.
== END 2022-01-20 15:49 | disposition home or self-care (01) | DRG 236 ==
LOC: PAS IN 05:13 → CICU 2S 12:41 → PCU 3S 01-19 15:05
PROVIDERS: ADMIT Surgery; ATTEND Surgery
PROC: 02100Z9 Bypass Coronary Artery, One Artery from Left Internal Mammary, Open Approach (ICD-10-PCS; 2022-01-16)
PROC: 06BQ4ZZ Excision of Left Saphenous Vein, Percutaneous Endoscopic Approach (ICD-10-PCS; 2022-01-16)
PROC: B24BZZ4 Ultrasonography of Heart with Aorta, Transesophageal (ICD-10-PCS; 2022-01-16)
PROC: 4B02XTZ Measurement of Cardiac Defibrillator, External Approach (ICD-10-PCS; 2022-01-16)
PROC: 5A09357 Assistance with Respiratory Ventilation, Less than 24 Consecutive Hours, Continuous Positive Airway Pressure (ICD-10-PCS; 2022-01-16)
PROC: 02HV33Z Insertion of Infusion Device into Superior Vena Cava, Percutaneous Approach (ICD-10-PCS; 2022-01-16)
PROC: B548ZZA Ultrasonography of Superior Vena Cava, Guidance (ICD-10-PCS; 2022-01-16)
PROC: 03HY32Z Insertion of Monitoring Device into Upper Artery, Percutaneous Approach (ICD-10-PCS; 2022-01-16)
PROC: B34HZZZ Ultrasonography of Right Upper Extremity Arteries (ICD-10-PCS; 2022-01-16)
PROC: 3E0T3BZ Introduction of Anesthetic Agent into Peripheral Nerves and Plexi, Percutaneous Approach (ICD-10-PCS; 2022-01-16)
PROC: 02C00ZZ Extirpation of Matter from Coronary Artery, One Artery, Open Approach (ICD-10-PCS; 2022-01-16)
PROC: 021009W Bypass Coronary Artery, One Artery from Aorta with Autologous Venous Tissue, Open Approach (ICD-10-PCS; principal; 2022-01-16 07:57)
DX: I25.119 Atherosclerotic heart disease of native coronary artery with unspecified angina pectoris (principal); I23.7 Postinfarction angina; E78.5 Hyperlipidemia, unspecified; I11.9 Hypertensive heart disease without heart failure; I95.9 Hypotension, unspecified; I25.5 Ischemic cardiomyopathy; I25.82 Chronic total occlusion of coronary artery; J44.9 Chronic obstructive pulmonary disease, unspecified; I25.2 Old myocardial infarction; Z87.891 Personal history of nicotine dependence; Z95.810 Presence of automatic (implantable) cardiac defibrillator
CPT/HCPCS: 36415; 36600; 71045; 71046; 80048; 80053; 81001; 82330; 82435; 82803; 82947; 82948; 83036; 83735; 84100; 84132; 84295; 84443; 85018; 85025; 85347; 85384; 85610; 85730; 86885; 86900; 86901; 86920; 87081; 88300; 93005; 93306; 93312; 93325; 93880; 93970; 94002; 94668; 94760; 97116; 97161; 97530; A4333; A4618; A6212; A6213; A6222; A6223; A6258; A6402; A6449; A7000; A7048; C1751; G0378; J0171; J0690; J1644; J1650; J1815; J2250; J2270; J2440; J2704; J2720; J2795; J3010; J3370; J3475; J3480; J3490; J7030; J7040; J7050; J7060; J7120; P9045; P9047

== ENCOUNTER 2022-01-30 09:37 | Emergency (ER) | payer MEDICARE ==
[~2022-01-30] VITALS: Ht 172.7 cm; Wt 71.0 kg
[~2022-01-30 09:37] MED LIST changes: +FERR324T3 PO; -NITR0.4T51 SL; +TRAM50TA2 PO; -ringers solution, lacted 1,000 ML IV SCH
[2022-01-30 09:43] VITALS: BP 131/72
[2022-01-30] MEDS ORDERED: HYDROcodone/acetaminophen 10/325mg tab PO ONE (12:20)
== END 2022-01-30 12:25 | disposition home or self-care (01) ==
LOC: ER 09:38
DX: M79.602 Pain in left arm (principal); R20.0 Anesthesia of skin; I10 Essential (primary) hypertension; K21.9 Gastro-esophageal reflux disease without esophagitis; E78.00 Pure hypercholesterolemia, unspecified; E03.9 Hypothyroidism, unspecified; F12.10 Cannabis abuse, uncomplicated; Z79.899 Other long term (current) drug therapy
CPT/HCPCS: 71045; 93005; 99283

== ENCOUNTER 2023-11-22 11:39 | Inpatient (IN) | payer MEDICARE, OTHER ==
[~2023-11-22] VITALS: Ht 172.7 cm; Wt 78.2 kg
[~2023-11-22 11:39] MED LIST changes: +ROPI1TAB47 PO; -ROPI1TAB6 PO; -TRAM50TA2 PO
--- NOTE | 2023-11-22 11:56 | NUR ---
RECHECKED BP 70/31
[2023-11-22 12:00] LABS: BASOPHILS % (AUTO) 0.4 % (0-1); EOSINOPHILS % (AUTO) 0.3 % (0-6); HEMOGLOBIN 12.6 g/dl (12.0-16.0); LYMPHOCYTES % (AUTO) 8.6 % (21-51); MEAN CORPUSCULAR HEMOGLOBIN 33.6 PG (27.0-31.0); MEAN CORPUSCULAR HGB CONC 34.1 g/dL (33.0-36.5); MEAN CORPUSCULAR VOLUME 98.8 FL (78-98); MEAN PLATELET VOLUME 8.5 FL (7.4-10.4); MONOCYTES # (AUTO) 0.7 X10'3 (0-0.9); MONOCYTES % (AUTO) 5.8 % (2-12); NEUTROPHILS # (AUTO) 9.9 X10'3 (1.8-7.7); NEUTROPHILS % (AUTO) 84.9 % (42-75); PLATELET COUNT 289 X10'3 (140-440); RED BLOOD COUNT 3.74 X10'6 (4.20-5.60); RED CELL DISTRIBUTION WIDTH 14.4 % (11.5-14.5); WHITE BLOOD COUNT 11.7 X10'3 (4.5-11.0)
--- NOTE | 2023-11-22 12:18 | NUR ---
OHLFS AT BEDSIDE, AWARE OF BP
[2023-11-22 12:21] LABS: ALBUMIN 4.3 G/DL (3.4-5.0); ANION GAP 9 (8-16); BLOOD UREA NITROGEN 25 MG/DL (7-18); BUN/CREATININE RATIO 13.4 (10.0-20.0); CALCIUM 9.9 MG/DL (8.5-10.1); CHLORIDE 101 MMOL/L (99-107); CREATININE 1.86 MG/DL (0.40-0.90); GLUCOSE 148 MG/DL (70-104); PRO BRAIN NATRIURETIC PEPTIDE 640 PG/ML (0-125); SODIUM 139 MMOL/L (135-145); TOTAL CARBON DIOXIDE 28.9 MMOL/L (24-32); eCRCL 27 ML/MIN; eGFR 27 ML/MIN
[2023-11-22 12:23] LABS: POTASSIUM 2.6 MMOL/L (3.5-5.1)
--- NOTE | 2023-11-22 12:30 | NUR ---
VERBAL ORDER FOR 1 NS FLUID BOLUS, PER MD. AT BEDSIDE. PT AWAKE, ALERT, TALKING, STATES SHE IS STARTING TO FEEL LESS DIZZINESS. VS TAKING Q 15MIN.
[2023-11-22] MEDS: normal saline 1000ml 1,000 ML IV ONE ×4 (12:36→20:22)
[2023-11-22] MEDS ORDERED: magnesium sulf-water 4G/100mL 100 ML IV PRN ×2 (13:00→16:35)
[2023-11-22] MEDS ORDERED: potassium Cl 40MEQ/1/2NS 520ml 520 ML IV PRN ×2 (13:00→16:35)
[2023-11-22] MEDS ORDERED: magnesium sulf-water 2g/50mL 50 ML IV PRN ×2 (13:00→16:35)
[2023-11-22] MEDS ORDERED: magnesium Cl slow-release 64mg tablet PO PRN ×2 (13:00→16:35)
[2023-11-22 13:11] LABS: MAGNESIUM 2.3 MG/DL (1.5-2.4)
[2023-11-22] MEDS: potassium Cl 20 mEq SR tablet PO PRN (13:12)
--- NOTE | 2023-11-22 13:50 | NUR ---
Reported to ER MD Dr. Waggoner pt BP trending down and now with BP 90/48. Received VO for 1 L NS IV bolus x 1
[2023-11-22 14:28] LABS: BILIRUBIN,URINE NEGATIVE (Neg); CLARITY,URINE CLEAR (Clear); COLOR,URINE YELLOW (Yellow); GLUCOSE, URINE 500 mg/dl (Neg); KETONES,URINE NEGATIVE (Neg); LEUKOCYTE ESTERASE ,URINE NEGATIVE (Neg); NITRITES, URINE NEGATIVE (Neg); OCCULT BLOOD,URINE TRACE-INTACT (Neg); PROTEIN,URINE NEGATIVE (Neg); UROBILINOGEN,URINE 0.2 E.U/dL (0.2-1.0)
[2023-11-22 14:33] LABS: SQUAMOUS EPITHELIAL CELL,UR MODERATE /LPF (FEW); UA COLLECTION TYPE CLN CATCH MIDSTREAM
[2023-11-22 14:34] LABS: BACTERIA,URINE FEW /HPF (Neg); RBC,URINE 0-2 /HPF (0-2); WBC,URINE 0-4 /HPF (0-4)
[2023-11-22] MEDS ORDERED: bisacodyl 10mg suppository rectal RC PRN (16:35)
[2023-11-22] MEDS ORDERED: diphenhydrAMINE 25mg capsule PO PRN (16:35)
[2023-11-22] MEDS ORDERED: ondansetron 4mg rapidly disintigrating tab PO PRN (16:35)
[2023-11-22] MEDS ORDERED: ondansetron/PF 4mg/2ml inj IV PRN (16:35)
[2023-11-22] MEDS ORDERED: magnesium hydroxide 30ml (MOM) UD suspension PO PRN (16:35)
[2023-11-22] MEDS ORDERED: acetaminophen 650mg rectal suppository RC PRN (16:35)
[2023-11-22] MEDS ORDERED: mag hydrox/Alum hydrox/simeth 30ml oral suspension PO PRN (16:35)
[2023-11-22] MEDS ORDERED: potassium Cl 20 mEq SR tablet PO PRN ×2 (16:35)
[2023-11-22] MEDS ORDERED: acetaminophen 325mg tablet PO PRN (16:35)
[2023-11-22] MEDS: PERFLUTREN PROTEIN-A MICROSPHR (Optison) 0.22 MG/ML 3ML VIAL IV ONE (16:50)
[2023-11-22] MEDS ORDERED: ROSU40TA71 PO (17:26)
[2023-11-22] MEDS ORDERED: CARV12.549 PO (17:26)
[2023-11-22] MEDS ORDERED: LOSA1TAB41 PO (17:26)
[2023-11-22] MEDS ORDERED: NITR0.4T51 SL (17:26)
--- NOTE | 2023-11-22 18:50 | NUR ---
CRITICAL RPT K 2.9, IMPROVED FROM INITIAL VALUE. HUSEYIN LEBRON TOOK CALL FROM LAB AND REPORTED RESULTS TO ADMITTING RESIDENT
[2023-11-22 18:53] LABS: POTASSIUM 2.9 MMOL/L (3.5-5.1)
[2023-11-22] MEDS: normal saline 1000ml 1,000 ML IV SCH (19:43)
--- NOTE | 2023-11-22 19:49 | NUR ---
orthostatic results: sitting- 102/59, 75 hr, 98 o2. 14 rr standing- 103/60, 78 hr, 99 o2, 16 rr laying- 92/84, 75 hr, 99 o2, 13 rr
[2023-11-22] MEDS: docusate sod 100mg capsule PO SCH (20:00)
[2023-11-22] MEDS: K and/or MAG REPLACEMENT MC SCH ×2 (20:00→20:22)
[2023-11-22] MEDS: heparin, porcine 5000 units/ml vial SQ SCH (20:32)
[2023-11-23] VITALS (9 sets, daily range): BP systolic 99–153; BP diastolic 55–93; PULSE 66–75; RESP 12–18; TEMP 97–98.5; O2SAT 93–99
[2023-11-23] MEDS: acetaminophen 325mg tablet PO PRN (05:34)
[2023-11-23 06:11] LABS: BASOPHILS % (AUTO) 0.5 % (0-1); EOSINOPHILS # (AUTO) 0.1 X10'3 (0-0.9); EOSINOPHILS % (AUTO) 2.5 % (0-6); HEMATOCRIT 31.1 % (35.0-45.0); HEMOGLOBIN 10.5 g/dl (12.0-16.0); LYMPHOCYTES # (AUTO) 1.3 X10'3 (1.1-4.8); LYMPHOCYTES % (AUTO) 24.5 % (21-51); MEAN CORPUSCULAR HEMOGLOBIN 34.1 PG (27.0-31.0); MEAN CORPUSCULAR HGB CONC 33.9 g/dL (33.0-36.5); MEAN CORPUSCULAR VOLUME 100.5 FL (78-98); MEAN PLATELET VOLUME 8.4 FL (7.4-10.4); MONOCYTES # (AUTO) 0.7 X10'3 (0-0.9); MONOCYTES % (AUTO) 12.6 % (2-12); NEUTROPHILS # (AUTO) 3.1 X10'3 (1.8-7.7); NEUTROPHILS % (AUTO) 59.9 % (42-75); PLATELET COUNT 209 X10'3 (140-440); RED BLOOD COUNT 3.09 X10'6 (4.20-5.60); RED CELL DISTRIBUTION WIDTH 14.4 % (11.5-14.5); WHITE BLOOD COUNT 5.3 X10'3 (4.5-11.0)
--- NOTE | 2023-11-23 06:20 | NUR ---
Patient in room PCU 3021. I have received report from HUSEYIN Michelle and had the opportunity to ask questions and assume patient care.
[2023-11-23 06:31] LABS: ALANINE AMINOTRANSFERASE 30 U/L (12-78); ALBUMIN 3.1 G/DL (3.4-5.0); ALBUMIN/GLOBULIN RATIO 1.1 (1.1-1.5); ALKALINE PHOSPHATASE 40 IU/L (46-116); ANION GAP 11 (8-16); ASPARTATE AMINO TRANSFERASE 25 U/L (10-37); BILIRUBIN,TOTAL 0.5 MG/DL (0.1-1.0); BLOOD UREA NITROGEN 20 MG/DL (7-18); BUN/CREATININE RATIO 15.5 (10.0-20.0); CALCIUM 8.2 MG/DL (8.5-10.1); CHLORIDE 110 MMOL/L (99-107); CHOL/HDL RATIO 2.2 (0.00-4.99); CHOLESTEROL 129 MG/DL (0-200); CREATININE 1.29 MG/DL (0.40-0.90); GLUCOSE 92 MG/DL (70-104); HDL CHOLESTEROL 60 MG/DL (35-60); LDL CHOLESTEROL 47 MG/DL (50-100); MAGNESIUM 2.1 MG/DL (1.5-2.4); PHOSPHORUS 2.6 MG/DL (2.3-4.5); POTASSIUM 3.1 MMOL/L (3.5-5.1); SODIUM 143 MMOL/L (135-145); TOTAL CARBON DIOXIDE 21.8 MMOL/L (24-32); TRIGLYCERIDES 116 MG/DL (20-135); eCRCL 39 ML/MIN; eGFR 41 ML/MIN
--- NOTE | 2023-11-23 06:41 | NUR ---
Problems reprioritized. Patient report given, questions answered & plan of care reviewed with Justine RN.
[2023-11-23] MEDS: potassium Cl 20 mEq SR tablet PO PRN (11:39)
[2023-11-23] MEDS: levoTHYROXINE 25mcg tablet PO SCH (11:40)
[2023-11-23] MEDS: ROSUVASTATIN CALCIUM 5 MG TABLET PO SCH (11:41)
[2023-11-23] MEDS ORDERED: temazepam 15mg capsule PO PRN (12:40)
[2023-11-23] MEDS ORDERED: docusate sod 100mg capsule PO PRN (19:05)
--- NOTE | 2023-11-23 19:30 | NUR ---
Problems reprioritized. Patient report given, questions answered & plan of care reviewed with HUSEYIN Amaro.
[2023-11-23] MEDS: Melatonin 3mg tablet PO PRN (21:37)
[2023-11-24 02:00] VITALS: BP 138/73; PULSE 63; RESP 13; TEMP 97.3; O2SAT 97
[2023-11-24 06:00] VITALS: BP 138/84; PULSE 80; RESP 13; TEMP 97.9; O2SAT 98
[2023-11-24 06:09] LABS: BASOPHILS % (AUTO) 0.5 % (0-1); EOSINOPHILS # (AUTO) 0.2 X10'3 (0-0.9); EOSINOPHILS % (AUTO) 3.1 % (0-6); HEMATOCRIT 31.3 % (35.0-45.0); HEMOGLOBIN 10.7 g/dl (12.0-16.0); LYMPHOCYTES # (AUTO) 1.2 X10'3 (1.1-4.8); LYMPHOCYTES % (AUTO) 22.6 % (21-51); MEAN CORPUSCULAR HEMOGLOBIN 34.9 PG (27.0-31.0); MEAN CORPUSCULAR HGB CONC 34.1 g/dL (33.0-36.5); MEAN CORPUSCULAR VOLUME 102.3 FL (78-98); MEAN PLATELET VOLUME 8.7 FL (7.4-10.4); MONOCYTES # (AUTO) 0.6 X10'3 (0-0.9); MONOCYTES % (AUTO) 10.6 % (2-12); NEUTROPHILS # (AUTO) 3.5 X10'3 (1.8-7.7); NEUTROPHILS % (AUTO) 63.2 % (42-75); PLATELET COUNT 213 X10'3 (140-440); RED BLOOD COUNT 3.06 X10'6 (4.20-5.60); RED CELL DISTRIBUTION WIDTH 14.6 % (11.5-14.5); WHITE BLOOD COUNT 5.5 X10'3 (4.5-11.0)
[2023-11-24 06:37] LABS: ANION GAP 11 (8-16); BLOOD UREA NITROGEN 14 MG/DL (7-18); BUN/CREATININE RATIO 13.9 (10.0-20.0); CALCIUM 8.8 MG/DL (8.5-10.1); CHLORIDE 114 MMOL/L (99-107); CREATININE 1.01 MG/DL (0.40-0.90); GLUCOSE 98 MG/DL (70-104); MAGNESIUM 2.3 MG/DL (1.5-2.4); PHOSPHORUS 2.6 MG/DL (2.3-4.5); SODIUM 147 MMOL/L (135-145); THYROID STIMULATING HORMONE 2.84 ulU/ml (0.34-4.50); TOTAL CARBON DIOXIDE 21.9 MMOL/L (24-32); eCRCL 50 ML/MIN; eGFR 54 ML/MIN
--- NOTE | 2023-11-24 06:40 | NUR ---
Patient in room PCU 3021. I have received report from HUSEYIN Amaro and had the opportunity to ask questions and assume patient care.
[2023-11-24 06:42] LABS: ALANINE AMINOTRANSFERASE 33 U/L (12-78); ALBUMIN 3.1 G/DL (3.4-5.0); ALKALINE PHOSPHATASE 36 IU/L (46-116); ASPARTATE AMINO TRANSFERASE 25 U/L (10-37); BILIRUBIN,TOTAL 0.3 MG/DL (0.1-1.0); TOTAL PROTEIN 6.1 G/DL (6.4-8.2)
--- NOTE | 2023-11-24 06:44 | NUR ---
Problems reprioritized. Patient report given, questions answered & plan of care reviewed with Felice FONTANEZ.
[2023-11-24 10:00] VITALS: BP 119/75; PULSE 68; RESP 18; TEMP 97; O2SAT 97
[2023-11-24 11:45] VITALS: RESP 16; O2SAT 98
[2023-11-24] MEDS ORDERED: CARV3.122 PO (14:52)
[2023-11-24] MEDS ORDERED: piperacillin/tazo 3.375gm/50ml 50 ML IV SCH (16:00)
[2023-11-24 16:30] VITALS: RESP 16; O2SAT 98
--- NOTE | 2023-11-24 20:08 | NUR ---
DC inst provided to pt. IV DC'd, tip intact. All belongings sent w/pt. Pt ambulated to vehicle.
== END 2023-11-24 18:15 | disposition home or self-care (01) | DRG 640 ==
LOC: ER 11:40 → ED HOLD 16:44 → PCU 3S 11-23 02:05
PROVIDERS: ADMIT Family Medicine; ATTEND Family Medicine
DX: E87.6 Hypokalemia (principal); N17.0 Acute kidney failure with tubular necrosis; I95.1 Orthostatic hypotension; F10.90 Alcohol use, unspecified, uncomplicated; R73.9 Hyperglycemia, unspecified; G47.33 Obstructive sleep apnea (adult) (pediatric); E03.9 Hypothyroidism, unspecified; E78.00 Pure hypercholesterolemia, unspecified; I10 Essential (primary) hypertension; K21.9 Gastro-esophageal reflux disease without esophagitis; I25.10 Atherosclerotic heart disease of native coronary artery without angina pectoris; I25.2 Old myocardial infarction; Z95.1 Presence of aortocoronary bypass graft; Z88.5 Allergy status to narcotic agent; Z88.0 Allergy status to penicillin; Z88.8 Allergy status to other drugs, medicaments and biological substances; Z79.899 Other long term (current) drug therapy
CPT/HCPCS: 36415; 71045; 80048; 80053; 80061; 81001; 82570; 83036; 83735; 83880; 84100; 84132; 84145; 84300; 84443; 84484; 85025; 87081; 93005; 93306; 96360; 99285; G0378; J1644; J7030

== ENCOUNTER 2024-07-10 08:24 | Observation (INO) | payer MEDICARE, MEDICAID ==
[2024-07-03 16:07] LABS: BILIRUBIN,URINE NEGATIVE (Neg); CLARITY,URINE CLEAR (Clear); COLOR,URINE YELLOW (Yellow); GLUCOSE, URINE >=1000 mg/dl (Neg); KETONES,URINE NEGATIVE (Neg); LEUKOCYTE ESTERASE ,URINE TRACE (Neg); NITRITES, URINE NEGATIVE (Neg); OCCULT BLOOD,URINE NEGATIVE (Neg); PROTEIN,URINE TRACE mg/dl (Neg); UROBILINOGEN,URINE 0.2 E.U/dL (0.2-1.0)
[2024-07-03 16:09] LABS: BASOPHILS % (AUTO) 0.5 % (0-1); EOSINOPHILS # (AUTO) 0.1 X10'3 (0-0.9); EOSINOPHILS % (AUTO) 1.3 % (0-6); LYMPHOCYTES # (AUTO) 1.9 X10'3 (1.1-4.8); LYMPHOCYTES % (AUTO) 18.9 % (21-51); MEAN CORPUSCULAR HEMOGLOBIN 30.9 PG (27.0-31.0); MEAN CORPUSCULAR HGB CONC 33.5 g/dL (33.0-36.5); MEAN CORPUSCULAR VOLUME 92.3 FL (78-98); MEAN PLATELET VOLUME 8.4 FL (7.4-10.4); MONOCYTES # (AUTO) 0.8 X10'3 (0-0.9); MONOCYTES % (AUTO) 7.9 % (2-12); NEUTROPHILS % (AUTO) 71.4 % (42-75); PRE OP HEMATOCRIT 39.4 % (35.0-45.0); PRE OP HEMOGLOBIN 13.2 g/dL (12.0-16.0); PRE OP PLATELET COUNT 240 X10'3 (140-440); PRE OP WHITE BLOOD COUNT 9.9 10'3 (4.8-10.8); RED BLOOD COUNT 4.27 X10'6 (4.20-5.60); RED CELL DISTRIBUTION WIDTH 14.3 % (11.5-14.5); UA COLLECTION TYPE CLN CATCH MIDSTREAM
[2024-07-03 16:14] LABS: RBC,URINE 0-2 /HPF (0-2); WBC,URINE 0-4 /HPF (0-4)
[2024-07-03 16:15] LABS: BACTERIA,URINE FEW /HPF (Neg); MUCUS STRANDS NONE SEEN /LPF (Neg); RENAL CELLS, URINE FEW /HPF; SQUAMOUS EPITHELIAL CELL,UR MODERATE /LPF (FEW); TRANSITIONAL EPI CELLS,URINE FEW /HPF
[2024-07-03 16:25] LABS: ALBUMIN 4.5 G/DL (3.4-5.0); ALBUMIN/GLOBULIN RATIO 1.4 (1.1-1.5); ALKALINE PHOSPHATASE 63 IU/L (46-116); BLOOD UREA NITROGEN 21 MG/DL (7-18); BUN/CREATININE RATIO 20.2 (10.0-20.0); CALCIUM 9.4 MG/DL (8.5-10.1); CHLORIDE 101 MMOL/L (99-107); CREATININE 1.04 MG/DL (0.40-0.90); PRE OP ALT 47 U/L (30-65); PRE OP ANION GAP 9 (8-16); PRE OP AST 35 U/L (10-37); PRE OP BILIRUB, TOTAL 0.5 MG/DL (0.0-1.0); PRE OP GLUCOSE 109 MG/DL (70-104); PRE OP POTASSIUM 3.9 MMOL/L (3.4-5.1); PRE OP SODIUM 139 MMOL/L (135-145); TOTAL PROTEIN 7.8 G/DL (6.4-8.2); eGFR 52 ML/MIN
[2024-07-10] VITALS (30 sets, daily range): BP systolic 104–133; BP diastolic 61–97; PULSE 59–100; RESP 11–20; TEMP 97.5–98.3; O2SAT 95–100
[~2024-07-10] VITALS: Ht 172.7 cm; Wt 81.1 kg
[~2024-07-10 08:24] MED LIST changes: -ALEN70TA80 PO; -ASPI-612 PO; +ASPI-955 PO; -CARV3.122 PO; +CARV6.253 PO; -CETI-90 PO; -CLOP75TA15 PO; -EMPA10TA PO; -FAMO40TA58 PO; -FERR324T3 PO; +MAGN400C PO; +OMEGA 3; +POTASSIUM PO; -ROSU20TA2 PO; +ROSU40TA89 PO; +[UNRECOGNIZED DRUG - OTHER]
[2024-07-10] MEDS: famotidine 20mg tablet PO ONE (09:29)
[2024-07-10] MEDS: GENTAMICIN IV ONE (09:30)
[2024-07-10] MEDS: DOCUMENT DATE & TIME OF BETA-BLOCKER PO ONE (09:30)
[2024-07-10] MEDS: clindamycin-Cleocin 900mg/D5W 50 ML IV ONE (09:30)
[2024-07-10] MEDS ORDERED: GENTAMICIN IV ONE (09:30)
[2024-07-10] MEDS: ringers solution, lacted 1,000 ML IV SCH ×2 (09:30→12:00)
[2024-07-10] MEDS: NORMAL SALINE IV ONE (09:30)
[2024-07-10] MEDS ORDERED: NORMAL SALINE IV ONE (09:30)
[2024-07-10] MEDS ORDERED: clindamycin phosphate 40gm vag cream ONE (10:20)
[2024-07-10] MEDS ORDERED: vasoPRESSIN 20 units/ml inj. ONE (10:21)
[2024-07-10] MEDS ORDERED: sevoflurane 250ml liquid IH ONE (11:12)
[2024-07-10] MEDS ORDERED: fentaNYL/PF 50MCG/1 ML 2ML syringe ONE (11:17)
[2024-07-10] MEDS ORDERED: midazolam 1 mg/ML 2ml injection ONE (11:17)
[2024-07-10] MEDS ORDERED: ondansetron/PF 4mg/2ml inj ONE ×2 (11:46→12:39)
[2024-07-10] MEDS ORDERED: propofol inj 20 ML IV ONE (11:46)
[2024-07-10] MEDS ORDERED: meperidine/PF 25mg/ml syringe IV PRN (12:00)
[2024-07-10] MEDS ORDERED: morphine 4 MG/ML inj SYRINge IV PRN (12:00)
[2024-07-10] MEDS ORDERED: HYDROmorphone/PF 0.2 MG/ML SYRINGE IV PRN ×2 (12:00)
[2024-07-10] MEDS ORDERED: dexamethasone sod phosphate 4mg/ml inj. ONE (12:39)
[2024-07-10] MEDS ORDERED: acetaminophen 1,000mg/100ml IV 100 ML IV ONE (12:39)
[2024-07-10] MEDS ORDERED: HYDROcodone/acetaminophen 5mg/325mg tablet PO PRN ×2 (12:55)
[2024-07-10] MEDS ORDERED: ondansetron/PF 4mg/2ml inj IV PRN (12:55)
[2024-07-10] MEDS: acetaminophen w/codeine (30MG) #3 tablet PO ONE (13:23)
[2024-07-10] MEDS: ondansetron/PF 4mg/2ml inj IV PRN (14:00)
[2024-07-10] MEDS: morphine 2 MG/ML inj. syringe IV PRN (14:04)
[2024-07-10] MEDS: dextrose 5%-lactated ringers 1,000 ML IV SCH (18:16)
[2024-07-10] MEDS: ibuprofen 200mg tablet PO PRN (18:59)
[2024-07-10] MEDS: carVEDilol 3.125mg tablet PO SCH (21:36)
[2024-07-10] MEDS: furosemide 40mg tablet PO SCH (21:37)
[2024-07-11 02:00] VITALS: BP 162/69; PULSE 75; RESP 18; TEMP 98.2; O2SAT 100
[2024-07-11 06:00] VITALS: BP 142/78; PULSE 65; RESP 20; TEMP 97.8; O2SAT 99
[2024-07-11 08:00] VITALS: RESP 18; O2SAT 99
[2024-07-11 09:47] VITALS: BP 122/71; RESP 20; TEMP 97.8; O2SAT 99
[2024-07-11 10:00] VITALS: BP 122/71; PULSE 65; RESP 20; TEMP 97.8; O2SAT 99
== END 2024-07-11 13:45 | disposition home or self-care (01) ==
LOC: PAS 08:24 → INTOOBSV 14:46 → SUR 3N 14:46
PROVIDERS: ADMIT Obstetrics & Gynecology Obstetrics; ATTEND Obstetrics & Gynecology Obstetrics
DX: N81.6 Rectocele (principal); Z79.899 Other long term (current) drug therapy; Z98.890 Other specified postprocedural states
CPT/HCPCS: 57250; 80053; 81001; 82948; 86885; 86900; 86901; 96365; 96375; A4615; A4618; A7000; G0378; J7120; 36415; 85025; 87081; 87088; C1758; J0131; J1100; J1580; J2250; J2270; J2405; J2704; J3010; J3490; J7121

== ENCOUNTER 2024-12-01 07:47 | Day surgery (SDC) | payer MEDICARE, MEDICAID ==
[~2024-12-01] VITALS: Ht 172.7 cm; Wt 78.0 kg
[2024-12-01] VITALS (10 sets, daily range): BP systolic 96–131; BP diastolic 60–71; PULSE 60–67; RESP 10–16; TEMP 98; O2SAT 89–100
[2024-12-01] MEDS ORDERED: simethicone 40mg/0.6ml oral drops 15ml ONE (08:00)
[2024-12-01] MEDS: ringers solution, lacted 1,000 ML IV SCH (09:12)
[2024-12-01] MEDS ORDERED: fentaNYL/PF 50MCG/1 ML 2ML syringe ONE (10:33)
[2024-12-01] MEDS ORDERED: MIDAZolam 1 MG/ML 5ML VIAL ONE (10:33)
== END 2024-12-01 11:50 | disposition home or self-care (01) ==
LOC: GI LAB 07:47
PROVIDERS: ATTEND Internal Medicine Gastroenterology
DX: R10.32 Left lower quadrant pain (principal); K57.30 Diverticulosis of large intestine without perforation or abscess without bleeding; K64.8 Other hemorrhoids; I10 Essential (primary) hypertension; E03.9 Hypothyroidism, unspecified; K21.9 Gastro-esophageal reflux disease without esophagitis; G47.33 Obstructive sleep apnea (adult) (pediatric); I25.2 Old myocardial infarction; M19.90 Unspecified osteoarthritis, unspecified site; Z95.1 Presence of aortocoronary bypass graft
CPT/HCPCS: 45378; 82948; A4620; G0500; J2250; J3010; J7040; J7120; Z7512; 99152; 99153